=== PATIENT | female | born 2000 | race American Indian/Alaskan Native ===

== ENCOUNTER 2021-08-29 22:58 | Outpatient (CLI) | payer MEDICAID ==
[2021-08-29 23:49] VITALS: BP 122/75
[2021-08-29] MEDS ORDERED: LACTATED RINGERS 1,000 ML IV ONE (23:51)
== END 2021-08-30 01:14 | disposition home or self-care (01) ==
LOC: TRG 22:58 → APU 23:57 → TRG 08-30 01:14
PROVIDERS: ATTEND Obstetrics & Gynecology
DX: O47.03 False labor before 37 completed weeks of gestation, third trimester (principal); Z3A.35 35 weeks gestation of pregnancy
CPT/HCPCS: 59025; 96360

== ENCOUNTER 2021-09-10 12:09 | Outpatient (CLI) | payer MEDICAID ==
[2021-09-10 13:09] VITALS: BP 127/67
== END 2021-09-10 14:40 | disposition home or self-care (01) ==
LOC: APU 12:09 → TRG 12:09
PROVIDERS: ATTEND Obstetrics & Gynecology
DX: Z34.93 Encounter for supervision of normal pregnancy, unspecified, third trimester (principal); Z3A.37 37 weeks gestation of pregnancy
CPT/HCPCS: 59025

== ENCOUNTER 2021-09-12 16:35 | Outpatient (CLI) | payer MEDICAID ==
[2021-09-12] MEDS ORDERED: LACTATED RINGERS 1,000 ML IV SCH (17:15)
[2021-09-12 17:27] VITALS: BP 117/72
== END 2021-09-12 17:54 | disposition home or self-care (01) ==
LOC: TRG 16:35 → APU 16:37 → TRG 17:54
PROVIDERS: ATTEND Obstetrics & Gynecology
DX: Z34.93 Encounter for supervision of normal pregnancy, unspecified, third trimester (principal); Z3A.37 37 weeks gestation of pregnancy
CPT/HCPCS: 59025

== ENCOUNTER 2021-09-16 10:07 | Inpatient (IN) | payer MEDICAID ==
[2021-09-16] MEDS ORDERED: AMPICILLIN/NS 2 GM/100 ML 2 GM/100 ML BAG IV ONE (11:10)
[2021-09-16] MEDS ORDERED: OXYTOCIN 10 UNIT/1 ML INJ IM PRN (11:10)
[2021-09-16] MEDS ORDERED: TERBUTALINE 1 MG/1 ML INJ SUB-Q PRN (11:10)
[2021-09-16] MEDS ORDERED: miSOPROStol 200 MCG TAB PR PRN (11:10)
[2021-09-16] MEDS ORDERED: BUTORPHANOL 2 MG/1 ML INJ IV PRN ×2 (11:10)
[2021-09-16] MEDS ORDERED: LOPERAMIDE 2 MG CAP PO PRN (11:10)
[2021-09-16] MEDS ORDERED: LIDOCAINE (2%) 20 MG/1 ML VIAL 20 ML MDV INFILTRATI ONE (11:10)
[2021-09-16] MEDS ORDERED: ONDANSETRON 4 MG/2 ML INJ IV PRN ×2 (11:10→20:37)
[2021-09-16] MEDS ORDERED: CARBOPROST TROMETHAMINE 250 MCG/1 ML INJ IM PRN (11:10)
[2021-09-16] MEDS ORDERED: MINERAL OIL 30 ML ORAL LIQD PO PRN (11:10)
[2021-09-16] MEDS ORDERED: NALOXONE 0.4 MG/1 ML INJ IV PRN (11:10)
[2021-09-16] MEDS ORDERED: ePHEDrine SULFATE 50 MG/1 ML INJ IV PRN (11:10)
[2021-09-16] MEDS ORDERED: METHYLERGONOVINE MALEATE 0.2 MG/ML VIAL IM PRN (11:10)
[2021-09-16] MEDS: LACTATED RINGERS 1,000 ML IV SCH ×3 (11:30→17:27)
[2021-09-16 12:00] LABS: Hematocrit 35.3 % (30.3-42.9); Hemoglobin 11.7 gm/dl (10.1-14.3); Mean Corpuscular HGB Conc 33 % (30-34); Mean Corpuscular Volume 81 fl (79-97); Platelet Count 284 K/mm3 (140-440); Red Blood Count 4.37 M/mm3 (3.65-5.03)
[2021-09-16] MEDS ORDERED: OXYTOCIN DRIP 30 UNITS/500 ML BAG IV SCH ×2 (12:00)
--- NOTE | 2021-09-16 12:48 | Anesthesia Consultation ---
Anesthesia Consult and Med Hx Date of service: 09/16/21 - Airway Anesthetic Teeth Evaluation: Good ROM Head & Neck: Adequate Mental/Hyoid Distance: Adequate Mallampati Class: Class II Intubation Access Assessment: Probably Good - Pulmonary Exam CTA: Yes - Cardiac Exam Cardiac Exam: RRR - Pre-Operative Health Status ASA Pre-Surgery Classification: ASA3 Proposed Anesthetic Plan: Epidural - Pulmonary Hx Asthma: No COPD: No Hx Pneumonia: No - Central Nervous System Hx Seizures: No Hx Psychiatric Problems: Yes (Depression) - Endocrine Hx Renal Disease: No Hx End Stage Renal Disease: No Hx Hypothyroidism: No Hx Hyperthyroidism: No - Hematic Hx Anemia: No Hx Sickle Cell Disease: No - Other Systems Hx Alcohol Use: No Hx Obesity: Yes
[2021-09-16] MEDS ORDERED: NALOXONE 2 MG/2 ML INJ IV PRN (13:00)
[2021-09-16] MEDS ORDERED: fentaNYL-BUPIV 2 MCG/ML-0.125% 200 MCG/100 ML BAG EPIDURAL SCH (13:00)
--- NOTE | 2021-09-16 14:09 | Progress Note ---
Labor Epidural - Labor Epidural Start Time: 13:59 Stop Time: 14:04 Performed by:: NANCI RICE Procedure: Patient is requesting epidural for labor pain. H&P, and labs reviewed. Procedure explained, questions answered, consent obtained. Patient in sitting position with blood pressure cuff and pulse ox on and working. Timeout performed immediately before start of procedure. Sterile chlorahexadine 0.5% prep/drape. 3 mL 1% lidocaine skin wheal at L[3]-L[4]. 17-gauge tuohy epidural needle advanced to [id number] with saline at [7] cm. Epidural catheter advanced to [12] cm, negative aspiration for blood and csf, negative test dose 3 ml 1.5% lidocaine with epinephrine. Epidural dexmedetomidine [30] mcg administered. Sterile sponge and tegaderm applied, followed by tape reinforcement. Patient tolerated procedure well. Denis SRNA
[2021-09-16] MEDS: ePHEDrine SULFATE 50 MG/1 ML INJ IV PRN ×3 (14:44→15:06)
[2021-09-16] MEDS: AMPICILLIN/NS 1 GM/50 ML 1 GM/50 ML BAG IV SCH ×2 (15:12→18:51)
--- NOTE | 2021-09-16 17:01 | History and Physical Report ---
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 History of present illness: . 38+1wks. BRANDI 09/29/21 Past History Past Medical History: no pertinent history Past Surgical History: no surgical history - Obstetrical History Expected Date of Delivery: 09/29/21 Actual Gestation: 38 Week(s) 1 Day(s) : 2 Para: 1 Medications and Allergies Allergies Allergy/AdvReac Type Severity Reaction Status Date / Time No Known Allergies Allergy Verified 09/10/21 13:25 Home Medications Medication Instructions Recorded Confirmed Last Taken Type Vit-Fe Fumar-FA [ 1 tab PO QDAY 09/12/21 09/16/21 09/10/21 History Vitamin] Sertraline [Zoloft] 50 mg PO QDAY 09/12/21 09/16/21 09/11/21 History Active Meds: Active Medications Butorphanol Tartrate (Butorphanol 2 Mg/1 Ml Inj) 1 mg IV Q2H PRN PRN Reason: Pain, Moderate(4-6) LABOR PAIN Butorphanol Tartrate (Butorphanol 2 Mg/1 Ml Inj) 2 mg IV Q2H PRN PRN Reason: Pain , Severe (7-10) Carboprost Tromethamine (Carboprost Tromethamine 250 Mcg/1 Ml Inj) 250 mcg IM ONCE PRN PRN Reason: Uterine Bleeding Oxytocin/Sodium Chloride (Pitocin/Ns 30 Unit/500ml) 30 units in 500 mls @ 2 mls/hr IV TITR MATHEW; Protocol Last Titration: 09/16/21 16:48 Dose: 4 mls/hr, 4 mls/hr Documented by: Lactated Ringer's (Lactated Ringers) 1,000 mls @ 125 mls/hr IV DIRECT MATHEW Last Infusion: 09/16/21 14:50 Dose: 999 mls/hr Documented by: Oxytocin/Sodium Chloride (Pitocin/Ns 30 Unit/500ml) 30 units in 500 mls @ 40 mls/hr IV TITR MATHEW; Protocol Ampicillin Sodium (Ampicillin/Ns 1 Gm/50 Ml) 1 gm in 50 mls @ 100 mls/hr IV Q4H MATHEW; Protocol Last Admin: 09/16/21 15:12 Dose: 100 mls/hr Documented by: Fentanyl/Bupivacaine/Sodium Chlor (Fentanyl-Bupiv 2 Mcg/Ml-0.125%) 200 mcg in 100 mls @ 12 mls/hr EPIDURAL TITR MATHEW; Protocol Last Admin: 09/16/21 14:25 Dose: 12 mls/hr Documented by: Loperamide HCl (Loperamide 2 Mg Cap) 2 mg PO ONCE PRN PRN Reason: give with Hemabate Methylergonovine Maleate (Methylergonovine Maleate 0.2 Mg/Ml Vial) 0.2 mg IM ONCE PRN PRN Reason: Uterine Bleeding Mineral Oil (Mineral Oil 30 Ml Oral Liqd) 30 ml PO QHS PRN PRN Reason: Constipation Misoprostol (Misoprostol 200 Mcg Tab) 800 mcg NE ONCE PRN PRN Reason: Uterine Bleeding Naloxone HCl (Naloxone 2 Mg/2 Ml Inj) 0.2 mg IV Q5M PRN PRN Reason: Respiratory sedation Ondansetron HCl (Ondansetron 4 Mg/2 Ml Inj) 4 mg IV Q8H PRN PRN Reason: Nausea And Vomiting Oxytocin (Oxytocin 10 Unit/1 Ml Inj) 10 unit IM ONCE PRN PRN Reason: Uterine Bleeding Terbutaline Sulfate (Terbutaline 1 Mg/1 Ml Inj) 0.25 mg SUB-Q ONCE PRN PRN Reason: Hyperstimulation/Hypertonicity Review of Systems All systems: negative Respiratory: no cough Gastrointestinal: abdominal pain - Vital Signs Vital signs: Vital Signs Pulse BP 112 H 133/76 09/16/21 10:28 09/16/21 10:28 Temp Pulse Resp BP Pulse Ox 97.4 F L 87 16 110/70 99 09/16/21 10:29 09/16/21 16:56 09/16/21 14:18 09/16/21 16:56 09/16/21 16:52 - Physical Exam Lungs: Positive: Normal air movement Abdomen: Positive: normal appearance, distention Genitourinary (Female): Positive: normal external genitalia Vulva: both: normal Vagina: Positive: normal moisture. Negative: discharge Uterus: Positive: enlarged, normal contour Anus/Rectum: Positive: normal perianal skin, heme negative. Negative: rectal mass, hemorrhoids Extremities: Positive: normal Deep Tendon Reflex Grade: Normal +2 - Obstetrical FHR: auscultation normal Uterine Contraction Monitor Mode: Palpation Cervical Dilatation: 4 Cervical Effacement Percentage: 80 station: 0 Uterine Contraction Frequency (min): q2-3min Uterine Contraction Pattern: Regular Uterine Contraction Intensity: Strong/Firm Results Result Diagrams: 09/16/21 11:00 Abnormal lab results 09/16/21 Range/Units 11:00 MCH 27 L (28-32) pg All other labs normal. Assessment and Plan - Patient Problems (1) Term Current Visit: Yes Status: Acute (2) Active labor at term Current Visit: Yes Status: Acute Plan to address problem: Admitted into L&D for management of labor.
--- NOTE | 2021-09-16 17:07 | Event Note ---
Date: 09/16/21 Reviewed. Mother and fetus table and epidural is in. CX 4-5cm. ARM with clear fluid. Station 0. Pelvis adequate.
[2021-09-16] MEDS ORDERED: MAGNESIUM HYDROXIDE (MOM) ORAL LIQD UDC PO PRN (20:37)
[2021-09-16] MEDS ORDERED: HYDROcodone/ACETAMINOPHEN 5-325 MG TAB PO PRN (20:37)
[2021-09-16] MEDS ORDERED: WITCH HAZEL/ GLYCERIN PAD TP PRN (20:37)
[2021-09-16] MEDS ORDERED: LANOLIN/ZINC/DIMETHICONE (LANSINOH) 7 GM TP PRN (20:37)
[2021-09-16] MEDS ORDERED: ACETAMINOPHEN 325 MG TAB PO PRN (20:37)
[2021-09-16] MEDS ORDERED: PROMETHAZINE 25 MG TAB PO PRN (20:37)
[2021-09-16] MEDS ORDERED: KETOROLAC 30 MG/1 ML INJ IV PRN (20:37)
[2021-09-16] MEDS ORDERED: PROMETHAZINE 25 MG RECT SUPP PR PRN (20:37)
[2021-09-16] MEDS ORDERED: diphenhydrAMINE 25 MG CAP PO PRN (20:37)
--- NOTE | 2021-09-16 20:43 | Procedure Note ---
OB Delivery Note - Delivery Date of Delivery: 09/16/21 Surgeon: CJ NICHOLSON Estimated blood loss: 200cc - Vaginal Delivery presentation: vertex Delivery position: OA Intrapartum events: none Delivery induction: none Delivery augmentation: rupture of membranes, pitocin Delivery monitor: external FHT, external uterine Route of delivery: Delivery placenta: spontaneous, expressed Delivery cord: 3 umbilical vessels Episiotomy: none Delivery laceration: none Anesthesia: epidural - Infant A at 1 minute: 8 at 5 minutes: 9 Infant Gender: Female
[2021-09-17] MEDS: IBUPROFEN 600 MG TAB PO SCH ×4 (05:16→22:19)
[2021-09-17] MEDS: PRENATAL VIT27-FE FUMARATE-FOLIC ACID VIT TAB PO SCH (09:59)
--- NOTE | 2021-09-17 12:07 | Post Anesthesia Evaluation ---
- Post Anesthesia Evaluation Patient Participated: Yes Airway Patent: Yes Stable Respiratory Function: Yes Nausea/Vomiting: No Temp > 96.8F: Yes Pain Manageable: Yes Adequeate Hydration: Yes Anesthesia Complications: No Block Receding Appropriately: Yes
[2021-09-17 13:33] LABS: Hemoglobin 11.2 gm/dl (10.1-14.3)
--- NOTE | 2021-09-17 14:40 | Progress Note ---
Assessment and Plan - Patient Problems (1) Term Current Visit: Yes Status: Resolved (2) Active labor at term Current Visit: Yes Status: Resolved (3) Status post vaginal delivery Current Visit: Yes Status: Acute Plan to address problem: Stable. Subjective - Subjective Date of service: 09/17/21 Principal diagnosis: day 1. Interval history: . 38+1wks. BRANDI 09/29/21 09/16/21. Indicates would like to go home today. Patient reports: appetite normal, voiding normally, pain well controlled, ambulating normally : doing well Objective - Vital Signs Latest vital signs: Vital Signs Temp Pulse Resp BP BP Pulse Ox Pulse Ox 09/17/21 08:15 99 09/17/21 06:16 18 09/17/21 05:22 97.8 F 89 20 132/80 98 09/17/21 05:16 18 09/17/21 02:00 98.6 F 105 H 20 122/60 97 09/17/21 00:05 100 09/16/21 23:28 98.5 F 103 H 18 143/77 100 09/16/21 22:11 86 136/81 09/16/21 21:56 99 H 124/67 09/16/21 21:41 100 H 138/66 09/16/21 21:26 97 H 146/72 09/16/21 21:11 100 H 142/81 09/16/21 20:41 113 H 141/85 09/16/21 20:37 120 H 100 09/16/21 20:32 112 H 99 09/16/21 20:27 102 H 100 09/16/21 20:22 112 H 100 09/16/21 20:17 119 H 100 09/16/21 20:12 116 H 100 09/16/21 20:07 89 99 09/16/21 20:02 104 H 99 09/16/21 19:57 98 H 98 09/16/21 19:52 97 H 100 09/16/21 19:47 103 H 100 09/16/21 19:43 91 H 111/55 09/16/21 19:42 104 H 100 09/16/21 19:37 105 H 99 09/16/21 19:32 104 H 99 09/16/21 19:27 97 H 97/53 100 09/16/21 19:22 98.7 F 104 H 16 99/52 100 09/16/21 19:20 100 09/16/21 19:17 105 H 100 09/16/21 19:12 102 H 99/52 99 09/16/21 19:07 105 H 100 09/16/21 19:02 111 H 100 09/16/21 18:57 122 H 99 09/16/21 18:56 114 H 91/43 09/16/21 18:52 97 H 98 09/16/21 18:47 90 100 09/16/21 18:42 101 H 100 09/16/21 18:41 97 H 104/54 09/16/21 18:37 113 H 100 09/16/21 18:32 99 H 98 09/16/21 18:29 101 H 96/53 09/16/21 18:27 97.4 F L 98 H 16 97/46 99 09/16/21 18:22 104 H 100 09/16/21 18:17 106 H 100 09/16/21 18:12 77 99 09/16/21 18:10 92 H 121/67 09/16/21 18:07 97 H 99 09/16/21 18:02 98 H 100 09/16/21 17:57 82 100 09/16/21 17:56 107 H 128/70 09/16/21 17:52 108 H 100 09/16/21 17:47 90 100 09/16/21 17:42 98 H 100 09/16/21 17:40 100 H 122/56 09/16/21 17:37 106 H 100 09/16/21 17:32 103 H 98 09/16/21 17:27 73 100 09/16/21 17:25 84 122/61 09/16/21 17:22 90 100 09/16/21 17:17 81 99 09/16/21 17:12 98 H 99 09/16/21 17:11 99 H 117/60 09/16/21 17:07 83 98 09/16/21 17:02 85 100 09/16/21 16:57 95 H 99 09/16/21 16:56 87 110/70 21 16:52 88 99 09/16/21 16:47 81 100 09/16/21 16:42 109 H 100 21 16:40 101 H 90/50 09/16/21 16:37 85 99 09/16/21 16:32 98 H 100 09/16/21 16:30 97.8 F 16 99 09/16/21 16:27 79 99 09/16/21 16:26 97 H 98/54 09/16/21 16:22 108 H 100 09/16/21 16:17 107 H 99 09/16/21 16:12 108 H 100 09/16/21 16:10 100 H 121/56 09/16/21 16:07 88 99 09/16/21 16:02 117 H 100 09/16/21 15:57 85 126/58 99 09/16/21 15:52 102 H 99 09/16/21 15:47 88 99 09/16/21 15:42 92 H 99 09/16/21 15:41 88 119/61 09/16/21 15:37 113 H 99 09/16/21 15:32 91 H 100 09/16/21 15:27 94 H 99 09/16/21 15:25 101 H 117/53 09/16/21 15:22 99 H 98 09/16/21 15:21 93 H 120/58 09/16/21 15:18 94 H 114/58 09/16/21 15:17 97 H 98 09/16/21 15:16 86 117/58 09/16/21 15:12 107 H 104/55 98 09/16/21 15:09 78 116/53 09/16/21 15:07 101 H 98 09/16/21 15:06 91 H 107/51 09/16/21 15:05 93 H 105/52 09/16/21 15:02 118 H 97 09/16/21 14:58 89 110/54 09/16/21 14:57 113 H 98 09/16/21 14:54 98 H 88/44 09/16/21 14:52 102 H 98 09/16/21 14:51 100 H 100/53 09/16/21 14:48 113 H 102/48 09/16/21 14:47 113 H 99 09/16/21 14:46 115 H 99/52 09/16/21 14:43 106 H 107/51 09/16/21 14:42 109 H 98 09/16/21 14:39 114 H 132/63 09/16/21 14:37 96 H 97 Intake and Output 09/16/21 09/17/21 09/17/21 23:59 07:59 15:59 Intake Total 7.034 480 320 Output Total 800 1550 600 Balance -792.966 -1070 -280 Intake: IV 7.034 PITOCin/NS 30 UNIT/500ML 7.034 30 units In 500 ml @ 2 mls/hr IV TITR MATHEW Rx#: [id number] Oral 480 320 Output: Urine 800 1550 600 Uretheral ([place]) 800 Void 1550 600 Other: Total, Intake Amount 480 320 Total, Output Amount 700 600 Estimated Blood Loss 200 - Exam Breasts: Present: deferred Lungs: Present: Normal air movement Abdomen: Present: normal appearance, soft Uterus: Present: normal, firm Extremities: Present: normal Deep Tendon Reflex Grade: Normal +2
--- NOTE | 2021-09-17 14:44 | Discharge Summary ---
Providers - Providers Date of Admission: 09/16/21 10:07 Date of discharge: 09/17/21 Attending physician: CJ NICHOLSON MD 09/17/21 08:00 Consult to [employer] [CONS] Routine Reason For Exam: Primary care physician: CJ NICHOLSON MD Hospitalization Reason for admission: active labor Delivery: Episiotomy: none Laceration: none Other procedures: none complications: none Discharge diagnosis: IUP at term delivered baby: female Condition at discharge: Good Disposition: 01 HOME / SELF CARE / HOMELESS - Discharge Diagnoses (1) Term Status: Resolved (2) Active labor at term Status: Resolved (3) Status post vaginal delivery Status: Acute Plan - Provider Discharge Summary Activity: routine, no sex for 6 weeks, no heavy lifting 4 weeks, no strenuous exercise Diet: routine Instructions: routine Additional instructions: [] Smoking cessation referral if applicable(refer to patient education folder for contact #) [] Refer to [facility]'s [facility] Booklet Call your doctor immediately for: * Fever > 100.5 * Heavy vaginal bleeding ( >1 pad per hour) * Severe persistent headache * Shortness of breath * Reddened, hot, painful area to leg or breast * Drainage or odor from incision. * Keep incision clean and dry at all times and follow doctor's instructions regarding bathing/showering - Follow up plan Follow up: CJ NICHOLSON MD [Primary Care Provider] - 7 Days
[2021-09-17] MEDS ORDERED: FLU VACC QUAD 2021-22(6MOS UP)/PF 60 MCG/0.5 ML SYRINGE IM ONE (17:47)
[2021-09-18] MEDS: IBUPROFEN 600 MG TAB PO SCH ×2 (04:19→09:05)
[2021-09-18] MEDS: PRENATAL VIT27-FE FUMARATE-FOLIC ACID VIT TAB PO SCH (09:49)
[2021-09-18 13:12] VITALS: BP 110/61
== END 2021-09-18 15:30 | disposition home or self-care (01) | DRG 775 ==
LOC: LD 10:07 → OB 09-17
PROVIDERS: ADMIT Obstetrics & Gynecology; ATTEND Obstetrics & Gynecology
PROC: 10E0XZZ Delivery of Products of Conception, External Approach (ICD-10-PCS; principal; 2021-09-16)
PROC: 3E0R3BZ Introduction of Anesthetic Agent into Spinal Canal, Percutaneous Approach (ICD-10-PCS; 2021-09-16)
PROC: 00HU33Z Insertion of Infusion Device into Spinal Canal, Percutaneous Approach (ICD-10-PCS; 2021-09-16)
DX: O99.344 Other mental disorders complicating childbirth (principal); Z3A.38 38 weeks gestation of pregnancy; Z37.0 Single live birth; F32.A Depression, unspecified; Z20.822 Contact with and (suspected) exposure to COVID-19
CPT/HCPCS: 36415; 85014; 85018; 85027; 86850; 86900; 86901; 90471; 90686; 99211; G0378; G0008; G0463; J0290; J2590; J7120; U0003